=== PATIENT | female | born 1980 | race Caucasian/White ===

== ENCOUNTER → 2018-01-11 | Outpatient (CLI) | payer BC | LOC: RAH 12:34 | PROVIDERS: ATTEND Physician Assistant Medical | DX: R92.2 Inconclusive mammogram (principal) | CPT/HCPCS: 77062; 77066 ==

== ENCOUNTER → 2019-06-09 | Outpatient (CLI) | payer BC | END | disposition home or self-care (01) | LOC: RAH 11:43 | PROVIDERS: ATTEND Obstetrics & Gynecology | DX: Z12.31 Encounter for screening mammogram for malignant neoplasm of breast (principal) | CPT/HCPCS: 77063; 77067 ==

== ENCOUNTER → 2020-06-10 | Outpatient (CLI) | payer BC | END | disposition home or self-care (01) | LOC: RAH 15:32 | PROVIDERS: ATTEND Obstetrics & Gynecology | DX: Z12.31 Encounter for screening mammogram for malignant neoplasm of breast (principal) | CPT/HCPCS: 77067 ==